=== PATIENT | male | born 1960 | race Caucasian/White ===

== ENCOUNTER 2021-04-28 12:10 | Outpatient (CLI) | payer OTHER, SELFPAY ==
--- NOTE | ~2021-04-28 | XR_ITS ---
XR hip RT min 2V DATE: 04/28/2021 12:42 INDICATION: Right hip pain. TECHNIQUE: AP and lateral views of right hip COMPARISON: 03/21/2019 right hip FINDINGS: Status post right total hip arthroplasty. No fracture or dislocation, periosteal reaction o r bone destruction is evident. The pubic symphysis and right sacroiliac joint are intact. IMPRESSION: Status post right total hip arthroplasty Reviewed, dictated and finalized at location A.
== END 2021-04-28 12:11 | disposition home or self-care (01) ==
PROVIDERS: PCP Family Medicine; Visit Provider Family Medicine
DX: M25.551 Pain in right hip (principal); Z96.641 Presence of right artificial hip joint
CPT/HCPCS: 73502

== ENCOUNTER 2022-08-14 08:08 | Emergency (ER) | payer OTHER, SELFPAY ==
[2022-08-14] VITALS (11 sets, daily range): BP systolic 163–203; BP diastolic 77–98; PULSE 65–98; RESP 17–26; TEMP 36.6; O2SAT 97–99
--- NOTE | ~2022-08-14 | XR_ITS ---
EXAMINATION: XR abdomen/kub 1V DATE: 08/14/2022 10:46 INDICATION: 3 mm left ureteral stone. TECHNIQUE: A supine view of the abdomen on 2 radiographs was obtained. COMPARISON: CT dated 08/14/2022 at 9:22 AM FINDINGS: Contrast opacification of the ureter resulting from the prior contrast enhanced CT. There is mild lef t hydroureteronephrosis. The previously seen 3 mm stone is not identified and is likely obscured by t he contrast. There does however appear to be a transition in the caliber of the distal left ureter at approximately the level of the stone was identified at on the prior CT. There is however contrast in the more normal caliber more distal left ureter. Normal bowel gas pattern. Partially visualized righ t total hip arthroplasty. IMPRESSION: 1. Persistent mild left hydroureteronephrosis with subtle transition point suggested at the distal le ft ureter at the level of the previously noted 3 mm stone which may be obscured by the excreted contr ast. Reviewed, dictated and finalized at location A. IMPRESSION: 1. Persistent mild left hydroureteronephrosis with subtle transition point sugg ested at the distal left ureter at the level of the previously noted 3 mm stone which may be obscured by the excreted contrast.
--- NOTE | ~2022-08-14 | CT_ITS ---
EXAMINATION: CT abdomen pelvis w con DATE: 08/14/2022 09:34 INDICATION: Left upper quadrant abdominal pain and nausea. TECHNIQUE: Computed tomography (CT) of the abdomen and pelvis was performed with 100 mL Omnipaque-350 intravenous contrast. Automated exposure control and iterative reconstruction technique were employe d. The dose-length product was 1525.04 mGy-cm. COMPARISON: None FINDINGS: Mild bibasilar atelectasis. Small calcified nodules in the right lower lobe and calcified right hilar lymph nodes consistent with old granulomatous disease. Heart size is normal. No pericardial or pleur al effusion. Diffuse hepatic steatosis. Gallbladder, spleen, pancreas and bilateral adrenal glands ar e normal. A few low-attenuation right renal cysts the largest measuring 3.2 cm the upper pole. Obstru cting 3 mm stone in the distal left ureter with mild left hydroureteronephrosis and delayed left neph rogram. There is also asymmetric increased left perinephric stranding. There is moderate colonic dive rticulosis with a sigmoid predominance. There is no adjacent inflammatory change to suggest divertic ulitis. Small bowel and appendix are normal. Tiny fat-containing umbilical hernia and small fat-conta ining supraumbilical ventral hernia. Partially decompressed bladder is unremarkable. No free intraper itoneal gas or fluid. No pathologically enlarged abdominal or pelvic lymphadenopathy. Partially visua lized right total hip arthroplasty. Mild thoracolumbar dextrocurvature with moderate thoracic and lum bar spondylosis. IMPRESSION: 1. 3 mm distal left ureteral stone with mild left hydroureteronephrosis. Correlate with urinalysis to exclude associated ascending urinary tract infection. 2. Diverticulosis. Reviewed, dictated and finalized at location A. IMPRESSION: 1. 3 mm distal left ureteral stone with mild left hydroureteronephrosis. Correl ate with urinalysis to exclude associated ascending urinary tract infection. 2. Diverticulosis.
[2022-08-14 08:48] LABS: Basophils Absolute Auto 0.1 K/mm3 (0.0-0.1); Basophils Percent Auto 0.4 % (0.2-1.2); Eosinophils Absolute Auto 0.2 K/mm3 (0-0.3); Hematocrit 43.9 % (42.0-52.0); Hemoglobin 14.9 g/dL (14.0-18.0); Immature Granulocyte Absolute 0.07 K/mm3 (0.00-0.031); Immature Granulocyte Percent A 0.4 % (0-0.5); Lymphocytes Absolute Auto 1.85 K/mm3 (0.9-3.2); Lymphocytes Percent Auto 11.9 % (18.3-44.2); Mean Corpuscular HGB Conc 33.9 g/dl (32-36); Mean Corpuscular Hemoglobin 28.1 pg (26-34); Mean Corpuscular Volume 82.8 fl (80-100); Mean Platelet Volume 9.2 fl (7.4-10.4); Monocytes Absolute Auto 0.7 K/mm3 (0.1-0.6); Monocytes Percent Auto 4.3 % (2.6-8.5); Neutrophils Absolute Auto 12.8 K/mm3 (1.3-6.7); Platelet Count Result 247 k/mm3 (150-375); Red Cell Distribution Width 12.9 % (11.5-14.5); White Blood Count 15.6 K/mm3 (4.5-10.0)
[2022-08-14 08:58] LABS: Alanine Aminotransferase 29 U/L (6-50); Albumin Level 4.6 g/dL (3.5-5.1); Alkaline Phosphatase 82 U/L (38-126); Anion Gap 17 mmol/L (8-16); Aspartate Amino Transferase 25 U/L (17-59); Bilirubin,Total 0.6 mg/dL (0.2-1.3); Blood Urea Nitrogen 16 mg/dL (9-20); Calcium 8.7 mg/dL (8.4-10.2); Carbon Dioxide 24 mmol/L (22-30); Chloride 99 mmol/L (98-107); Estimated CRCL calculation 103 ml/min; Estimated Glomerular Filt Rate > 60; Glucose 308 mg/dL (65-110); Lipase 52 U/L (23-300); Potassium 4.8 mmol/L (3.4-5.0); Sodium 140 mmol/L (137-145)
[2022-08-14 09:04] LABS: Add Urine Microscopic? YES; Appearance Urine Cloudy (Clear); Bacteria Urine Trace /hpf; Bilirubin Urine Negative (Negative); Blood Urine 3+ (Negative); Color Urine Yellow (Yellow); Glucose Urine UA 3+ mg/dL (Negative); Ketones Urine Trace mg/dL (Negative); Leukocyte Esterase Ur Negative LEU/UL (Negative); Mucus Urine Rare /lpf; Nitrate Urine Negative (Negative); Protein Urine Negative (Negative); RBC Urine >75 /hpf (0-2); Specific Grav Ur 1.025 (1.001-1.035); Squamous Epithelial Cell Urine Rare /hpf (Few); Urobilinogen Urine Negative mg/dL (<2.0)
--- NOTE | 2022-08-14 09:04 | ECG_ITS ---
Measurements Intervals [place] Rate: 66 P: 24 OK: 147 QRS: -7 QRSD: 98 T: -3 QT: 388 QTc: 409 Interpretive Statements SINUS RHYTHM MINIMAL VOLTAGE CRITERIA FOR LVH, CONSIDER NORMAL VARIANT [MEETS CRITERIA IN ONE OF: R(aVL), S(V1), R(V5), R(V5/V6)+S(V1)] NO PREVIOUS ECG AVAILABLE FOR COMPARISON Electronically Signed On 08-14-2022 19:44:58 CDT by Darline Blanco M.D.
--- NOTE | 2022-08-14 09:12 | ED.ABDPAIN ---
HPI - Abdominal Pain General Chief Complaint: Abdominal Pain Stated Complaint: abd pain, vomiting Time Seen by Provider: 08/14/22 08:55 History of Present Illness HPI narrative: 61-year-old male with history of small bowel obstruction, hypertension, diabetes here for evaluation of left upper quadrant abdominal pain for the past 4 hours. Patient states the pain woke him up from his sleep. It is a constant, dull ache in his left upper quadrant. Additionally notes nausea but no vomiting, in addition to clamminess. Patient states he was in his usual state of health yesterday. His last bowel movement was yesterday was normal for him. He denies any fevers, chills, chest pain, shortness of breath, leg swelling. Patient states his symptoms today are identical to his presenting symptoms with his last bowel obstruction in 2007 that was managed operatively at [facility]. He has since had a follow-up colonoscopy that revealed polyps but no other findings. Related Data Allergies Allergy/AdvReac Type Severity Reaction Status Date / Time codeine Allergy Unknown Muscle Verified 08/14/22 08:29 Spasms meperidine Allergy Unknown Hypotension Verified 08/14/22 08:29 tramadol Allergy Unknown Muscle Verified 08/14/22 08:29 Spasms hydrocodone AdvReac Intermediate Nausea and Verified 08/14/22 10:12 Vomiting Review of Systems Review of Systems: Gen.: Reports clamminess. Denies fevers or chills Eyes: Denies eye pain or visual change ENT: Denies congestion Respiratory: Denies shortness of breath or cough CV: Denies chest pain or palpitations GI: Reports abdominal pain, nausea. Denies emesis or diarrhea denies burning, urgency, frequency or hematuria Musculoskeletal: Denies back pain or muscle pain Neuro: Denies numbness, tingling, weakness or focal weakness Skin: Denies rash Except as documented, all other systems reviewed and negative [facility] Family History Family History (Updated 05/20/16 @ 23:19 by DOCTOR UNKNOWN) Mother Family history of chronic obstructive pulmonary disease Family history of diabetes mellitus in first degree relative Family history of hearing loss Father Family history of lung cancer Social History Social History Smoking status: Heavy tobacco smoker Second hand tobacco smoke exposure: No Alcohol intake: current Exam Narrative: APPEARANCE: No acute distress, nontoxic, resting in bed HEENT: Normocephalic, atraumatic, OMM, TMs clear bilaterally EYES: PERRL, EOMI NECK: Supple, nontender, full range of motion without pain, no meningismus RESPIRATORY: No respiratory distress, clear to auscultation bilaterally with no rhonchi wheezing or rales CARDIOVASCULAR: RRR s murmur ABDOMINAL: Tender to palpation in left upper quadrant with no rebound tenderness or guarding. Normoactive bowel sounds. MUSCULOSKELETAL: Moves all extremities. No clubbing, cyanosis or edema. NEURO: A and O ?3, following commands, speech normal, cranial nerves II through XII grossly intact,muscle strength 5 out of 5 bilateral upper and lower extremities SKIN:: Warm, dry. Normal Color PSYCHIATRIC: Normal affect/mood Course Consultations Consultation #1: Spoke with Dr. Andres, urology, recommends outpatient antibiotics at this time given that urine does not appear overtly infected. Elevation in white blood cell count may be due to dehydration or inflammation. Vital Signs Vital signs: Vital Signs Temperature 97.8 F 08/14/22 08:22 Pulse Rate 65 08/14/22 08:22 Respiratory Rate 24 H 08/14/22 08:22 Blood Pressure 203/77 H 08/14/22 08:22 Pulse Oximetry 99 08/14/22 08:22 Temperature 97.8 F 08/14/22 08:22 Pulse Rate 90 08/14/22 12:45 Respiratory Rate 20 08/14/22 12:45 Blood Pressure 163/92 H 08/14/22 12:45 Pulse Oximetry 98 08/14/22 12:45 MDM - Abdominal Pain MDM Narrative Medical decision making narrative: 61-year-old male here for evaluation of left side abdominal pain and
[2022-08-14] MEDS: SODIUM CHLORIDE 0.9% IV 1,000 ML 999 ML IV CONT ×2 (09:18→10:17)
[2022-08-14] MEDS: ONDANSETRON INJ 4 MG/2 ML VIAL IV PUSH (09:18)
[2022-08-14 09:21] LABS: Fractional Inspired Oxygen 21 %; PCO2 VBG 40.5 mmHg (42.0-48.0); PO2 VBG 34.2 mmHg (35.0-45.0); pH VBG 7.373 (7.300-7.400)
--- NOTE | 2022-08-14 09:21 | PC.NURSE ---
PT TO CT ON STRETCHER UPRIGHT AND ALERT.
[2022-08-14 09:22] LABS: Device ROOM AIR
[2022-08-14 09:33] LABS: Troponin I < 0.012 ng/mL (0.000-0.034)
[2022-08-14 09:38] LABS: Lactic Acid Reflex 3.1 mmol/L (0.7-2.0)
[2022-08-14 12:22] LABS: Reflex Lactic Acid Yes or No Add Lactic
[2022-08-14 12:46] LABS: Lactic Acid 2.8 mmol/L (0.7-2.0)
== END 2022-08-14 13:07 | disposition home or self-care (01) ==
PROVIDERS: Physician Assistant; Emergency Provider Emergency Medicine; PCP Family Medicine
DX: N13.2 Hydronephrosis with renal and ureteral calculous obstruction (principal); I10 Essential (primary) hypertension; E11.9 Type 2 diabetes mellitus without complications; F17.200 Nicotine dependence, unspecified, uncomplicated; K57.90 Diverticulosis of intestine, part unspecified, without perforation or abscess without bleeding
CPT/HCPCS: 36415; 74018; 74177; 80053; 81001; 82803; 83605; 83690; 84484; 85025; 93005; 96361; 96374; 99284; A4565; J2405; J7030; Q9967

== ENCOUNTER 2022-08-18 10:47 | Outpatient (CLI) | payer OTHER, SELFPAY ==
--- NOTE | ~2022-08-18 | US_ITS ---
EXAMINATION: US carotid duplex BI DATE: 08/18/2022 11:46 INDICATION: Carotid bruit. Neck pulsations. TECHNIQUE: Grayscale, color Doppler, and pulsed Doppler images of the cervical carotid arteries were obtained. The degree of vessel stenosis is placed in one of the following categories: normal, <50%, 5 0-69%, >=70% but less than near-occlusion, near-occlusion, or total occlusion. Note that percent sten osis relative to normal distal artery lumen diameter is indirectly measured from velocity measurement s as described by Barry, et al. Radiology 2003; [id number]:340-346. Notes: Normal: Peak systolic velocity <125 centimeters/sec and no plaque <50%. Peak systolic velocity <125 ( EDV <40; ICA/CCA PSV ratio <2.0; used these factors only a tandem lesions or low cardiac output or co ntralateral disease) 50-69 %: PSV 125-230 (EDV 40-100; ratio 2-4) >= 70% but less than near occlusion: PSV greater than 230 (EDV > 100; ratio> 4.0) Near Occlusion: PSV that is variable; markedly narrowed lumen Occlusion: Absent flow on color/spectral Doppler and no lumen on garcia scale. COMPARISON: None. FINDINGS: RIGHT: The right common carotid artery (CCA) peak systolic velocity (PSV) is 89 cm/s. The right internal car otid artery (ICA) PSV is 86 cm/s. The right ICA end-diastolic velocity (EDV) is 21 cm/s. The right IC A/CCA PSV ratio is 1.0. The external carotid artery (ECA) PSV is 115 cm/s. There is antegrade flow in the right vertebral artery. LEFT: The left CCA PSV is 95 cm/s. The left ICA PSV is 72 cm/s. The left ICA EDV is 28 cm/s. The left ICA/C CA PSV ratio is 0.8. The ECA PSV is 119 cm/s. There is antegrade flow in the left vertebral artery. IMPRESSION: 1. Less than 50% stenosis in the right internal carotid artery by sonographic criteria. 2. Less than 50% stenosis in the left internal carotid artery by sonographic criteria. Reviewed, dictated and finalized at location B. IMPRESSION: 1. Less than 50% stenosis in the right internal carotid artery by sonographic c riteria. 2. Less than 50% stenosis in the left internal carotid artery by sonographic cr saurabhia.
== END 2022-08-18 10:48 | disposition home or self-care (01) ==
LOC: ANHIMG 10:52
PROVIDERS: PCP Family Medicine; Visit Provider Family Medicine
DX: R09.89 Other specified symptoms and signs involving the circulatory and respiratory systems (principal); I65.23 Occlusion and stenosis of bilateral carotid arteries
CPT/HCPCS: 93880

== ENCOUNTER 2022-09-19 14:46 | Outpatient (CLI) | payer OTHER, SELFPAY ==
--- NOTE | ~2022-09-19 | XR_ITS ---
XR abdomen/kub 1V 09/19/2022 15:21 INDICATION: Right ureteral stone TECHNIQUE: KUB COMPARISON: 08/14/2022 FINDINGS: Bowel gas pattern is normal. There is no evidence of free air, mass, organomegaly, ascites or obstruction. No abnormal calculi are seen. No stones identified in the expected course of the ur eters. There is a right total hip arthroplasty. Moderate lumbar spondylosis. The bones appear intact. IMPRESSION: 1: No acute abdominal abnormality identified. Reviewed, dictated and finalized at location A. [employer]
--- NOTE | ~2022-09-19 | US_ITS ---
US renal BI 09/19/2022 15:22 Procedure: Realtime transabdominal ultrasound of the kidneys and bladder. Indication: Left ureteral stone Comparison: CT dated 08/14/2022 Findings: Renal echotexture is normal bilaterally without hydronephrosis, contour deforming mass or r enal calculus. There is a right renal cyst measuring 3 cm maximum dimension. The right kidney measure s 11.8 cm and left kidney measures 12.7 cm. Bladder within normal limits. Impression: 1: Right renal cyst measuring 3 cm. Otherwise, unremarkable renal ultrasound. Reviewed, dictated and finalized at location A. OF PHYSICS Impression: 1: Right renal cyst measuring 3 cm. Otherwise, unremarkable renal ultrasound.
== END 2022-09-19 14:47 | disposition home or self-care (01) ==
LOC: ANHIMG 14:47
PROVIDERS: PCP Family Medicine; Visit Provider Urology
DX: N20.1 Calculus of ureter (principal); N28.1 Cyst of kidney, acquired
CPT/HCPCS: 74018; 76775